=== PATIENT | female | born 1980 | race Caucasian/White ===

== ENCOUNTER 2023-07-07 17:54 | Emergency (ER) | payer BC ==
[~2023-07-07] VITALS: Ht 154.9 cm; Wt 54.4 kg
[2023-07-07] MEDS ORDERED: IBUP-1953 PO (20:21)
[2023-07-07 20:41] VITALS: BP 135/72; TEMP 98.7; O2SAT 97
== END 2023-07-07 20:43 | disposition home or self-care (01) ==
LOC: ER 17:56
DX: S39.012A Strain of muscle, fascia and tendon of lower back, initial encounter (principal); S50.01XA Contusion of right elbow, initial encounter; S20.212A Contusion of left front wall of thorax, initial encounter; S80.212A Abrasion, left knee, initial encounter; S80.211A Abrasion, right knee, initial encounter; S09.90XA Unspecified injury of head, initial encounter; F32.A Depression, unspecified; F41.9 Anxiety disorder, unspecified; Z90.89 Acquired absence of other organs; Z60.2 Problems related to living alone; V23.49XA Other motorcycle driver injured in collision with car, pick-up truck or van in traffic accident, initial encounter; Y93.89 Activity, other specified; Y92.89 Other specified places as the place of occurrence of the external cause; Y99.8 Other external cause status
CPT/HCPCS: 71100-TC; 72170-TC; 73030-TC; 73080-TC